=== PATIENT | male | born 1975 | race Caucasian/White ===

== ENCOUNTER → 2016-08-26 | Outpatient (CLI) | payer BC ==
[2016-08-26 13:32] LABS: COMPLETE YES; EOS % 4.9 %; HEMATOCRIT 36.5 % (42-52); IG% 0.4 %; LYMPH % 9.1 %; LYMPH ABS # 0.24 K/uL (1.2-3.4); MEAN CELL VOLUME 90.8 fL (80-100); MEAN CORPUSCULAR HEMOGLOBIN 32.1 pg (25-34); MEAN CORPUSCULAR HGB CONC 35.3 g/dl (32-36); MEAN PLATELET VOLUME 10.7 fL (7.4-10.4); NEUT % 69.6 %; PLATELET COUNT 152 K/uL (130-400); RED BLOOD COUNT 4.02 M/uL (4.7-6.1); WHITE BLOOD COUNT 2.63 K/uL (4.8-10.8)
[2016-08-26 14:05] LABS: URINE PROTIEN/CREAT RATIO 0.1 (0-0.2)
[2016-08-26 14:55] LABS: URINE APPEARANCE CLEAR (CLEAR); URINE BILIRUBIN NEG (NEG); URINE COLOR YELLOW; URINE NITRITE NEG (NEG); URINE SPECIFIC GRAVITY 1.012 (1.000-1.030); UROBILINOGEN NEG (NEG)
[2016-08-26 14:59] LABS: MANUAL MICROSCOPIC REQUIRED? NO; REVIEW REQ? NO
[2016-08-26 17:17] LABS: ALT/SGPT 35 U/L (12-78); AST/SGOT 19 U/L (15-37); BLOOD UREA NITROGEN 17 mg/dl (7-18); BUN/CREATININE RATIO 14.6 (10-20); CALCIUM 8.6 mg/dl (8.5-10.1); CARBON DIOXIDE 30 mmol/L (21-32); CHLORIDE 108 mmol/L (98-107); GLUCOSE 87 mg/dl (70-99); POTASSIUM 4.2 mmol/L (3.5-5.1); SODIUM 142 mmol/L (136-145)
[2016-08-26 17:19] LABS: ALB/GLOB RATIO 1.4 (0.9-2); ALKALINE PHOSPHATASE 51 U/L (45-117); CHOLESTEROL 114 mg/dl (0-200); CHOLESTEROL/HDL RATIO 1.9; HDL CHOLESTEROL 61 mg/dl; LDL CHOLESTEROL CALCULATED 45 mg/dl; PHOSPHORUS 2.5 mg/dl (2.5-4.9); TRIGLYCERIDES 41 mg/dl (0-150); VERY LOW DENSITY LIPOPROT CALC 8 mg/dl
== END | disposition home or self-care (01) ==
LOC: C.LABBC 12:02
PROVIDERS: ATTEND Psychiatry & Neurology Neurology
DX: N18.2 Chronic kidney disease, stage 2 (mild) (principal); E55.9 Vitamin D deficiency, unspecified; D64.9 Anemia, unspecified; G35 Multiple sclerosis; Z13.220 Encounter for screening for lipoid disorders

== ENCOUNTER → 2016-10-01 | Outpatient (CLI) | payer BC ==
[2016-10-01 15:44] LABS: PATIENT HEIGHT 172.7 cm
[2016-10-01 17:07] LABS: EOS % 4.8 %; LYMPH % 11.4 %; LYMPH ABS # 0.38 K/uL (1.2-3.4); MEAN CORPUSCULAR HEMOGLOBIN 32.2 pg (25-34); MEAN PLATELET VOLUME 10.6 fL (7.4-10.4); MONO % 6.9 %; NEUT % 76.9 %; PLATELET COUNT 166 K/uL (130-400); RED BLOOD COUNT 4.13 M/uL (4.7-6.1); WHITE BLOOD COUNT 3.34 K/uL (4.8-10.8)
[2016-10-01 17:34] LABS: URINE TOTAL PROTEIN 5.7 mg/dl (0-11.9)
[2016-10-01 17:35] LABS: COMPLETE YES
[2016-10-01 17:58] LABS: CREATININE 1.3 mg/dl (0.6-1.4); URINE TOTAL PROTEIN CALC 125.4 mg/24 hr (0-149.1)
== END | disposition home or self-care (01) ==
LOC: C.LABBC 15:15
PROVIDERS: ATTEND Family Medicine
DX: N18.2 Chronic kidney disease, stage 2 (mild) (principal); D64.9 Anemia, unspecified

== ENCOUNTER → 2017-03-22 | Outpatient (CLI) | payer BC ==
[2017-03-22 17:44] LABS: URINE APPEARANCE CLEAR (CLEAR); URINE BILIRUBIN NEG (NEG); URINE COLOR YELLOW; URINE NITRITE NEG (NEG); URINE PH 5.5 (4.5-7.5); URINE SPECIFIC GRAVITY 1.016 (1.000-1.030); UROBILINOGEN NEG (NEG)
[2017-03-22 17:48] LABS: BLOOD UREA NITROGEN 19 mg/dl (7-18); BUN/CREATININE RATIO 14.7 (10-20); CALCIUM 9.3 mg/dl (8.5-10.1); CARBON DIOXIDE 28 mmol/L (21-32); CHLORIDE 106 mmol/L (98-107); GLUCOSE 89 mg/dl (70-99); PHOSPHORUS 2.6 mg/dl (2.5-4.9); POTASSIUM 4.6 mmol/L (3.5-5.1); SODIUM 139 mmol/L (136-145)
[2017-03-22 17:54] LABS: MANUAL MICROSCOPIC REQUIRED? NO; REVIEW REQ? NO
[2017-03-22 18:25] LABS: URINE PROTIEN/CREAT RATIO 0.1 (0-0.2); URINE TOTAL PROTEIN 5.5 mg/dl (0-11.9)
== END | disposition home or self-care (01) ==
LOC: C.LABBC 13:28
PROVIDERS: ATTEND Internal Medicine Nephrology
DX: N18.2 Chronic kidney disease, stage 2 (mild) (principal)

== ENCOUNTER → 2017-08-02 | Outpatient (CLI) | payer BC ==
[~2017-08-02] MED LIST: GADAVIST IV PRN
--- NOTE | 2017-08-02 15:07 | DIAGNOSTIC IMAGING REPORT ---
MRI OF THE BRAIN COMBO CLINICAL HISTORY: Follow-up multiple sclerosis. COMPARISON STUDY: MRI of the brain dated 09/12/2015. TECHNIQUE: MRI of the brain was performed utilizing various T1 and T2-weighted sequences in the axial, sagittal, and coronal planes. Contrast-enhanced sequences were acquired following the administration of 8 cc of Gadavist. The examination is performed using the multiple sclerosis protocol. FINDINGS: Brain parenchyma: There are small T2 hyperintense plaques identified in the subcortical and periventricular white matter. These are not significantly changed in size or distribution from the 09/12/2015 examination and are consistent with the reported clinical history of multiple sclerosis. There is no associated abnormal enhancement on the postcontrast sequences. 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 There is no hemorrhage or mass effect. There is no restricted diffusion to suggest acute ischemia. No enhancing mass lesion is identified on the postcontrast images. Rabago-white matter differentiation is preserved. No extra-axial fluid collection is seen. The cerebellar tonsils are normal in configuration. Ventricles, sulci, and cisterns: Normal in configuration. Pituitary and sella: Unremarkable. Intracranial vasculature: Normal flow voids are maintained at the skull base. Orbits: The bony orbits are grossly intact. Orbital contents are normal in appearance. Sinuses and mastoids: There is a tiny retention cyst in the right maxillary sinus. Mild mucosal thickening is seen within the left ethmoid sinuses. The remaining paranasal sinuses are clear. The mastoid air cells are well pneumatized. Calvarium: Unremarkable. Cervical cord: Partially visualized cervical spinal cord is normal in morphology and signal intensity. IMPRESSION: 1. No acute intracranial abnormality. 2. There are scattered T2 hyperintense lesions seen throughout the subcortical and periventricular white matter. These have not significantly changed in size or distribution from 09/12/2015 and are consistent with the reported clinical history of multiple sclerosis. There is no associated abnormal enhancement to suggest active demyelination. Electronically signed by: Krzysztof Noe M.D. 08/02/2017 3:06 PM Dictated Date/Time: 08/02/2017 2:59 PM
== END | disposition home or self-care (01) ==
LOC: C.MRI 13:37
PROVIDERS: ATTEND Psychiatry & Neurology Neurology
DX: G35 Multiple sclerosis (principal)